=== PATIENT | male | born 1985 | race Caucasian/White ===

== ENCOUNTER 2018-12-01 14:21 | Emergency (ER) | payer SELFPAY ==
[2018-12-01 14:30] VITALS: BP 134/72
--- NOTE | 2018-12-01 15:29 | ER Document Report ---
HPI - HPI Patient complains to provider of: neck bump Time Seen by Provider: 12/01/18 15:15 Pain Level: 1 Context: Patient is otherwise healthy 33-year-old male presents to the emergency department for a lesion noted to the left side of his throat. States he has had this "bump" for the last 2 years. Patient states today he figured he would "get it checked out." Patient is denying any pain, redness, increase in swelling or size. Patient's denying any discharge from the site. Patient's denying any internal sore throat, URI symptoms, fever, rash. Patient denies any medical problems, takes no daily medications, has an allergy to penicillin. Past Medical History - General Information source: Patient - Social History Smoking Status: Unknown if Ever Smoked Family History: Reviewed & Not Pertinent Psychiatric Medical History: Denies: Hx Depression Traumatic Medical History: Reports: Hx Fractures - jaw Past Surgical History: Reports: Hx Oral Surgery, Hx Tonsillectomy - Immunizations Hx Diphtheria, Pertussis, Tetanus Vaccination: No Vertical Provider Document - CONSTITUTIONAL Agree With Documented VS: Yes Notes: GENERAL: Alert, interacts well. No acute distress. HEAD: Normocephalic, atraumatic. EYES: Pupils equal, round, and reactive to light. Extraocular movements intact. ENT: Oral mucosa moist, tongue midline. Nares patent, no nasal septal hematoma, TM's intact, nonerythematous, nonbulging bilaterally. Pharynx within normal limits no palatal petechiae noted. NECK: Full range of motion. Supple. Trachea midline. No nuchal rigidity noted LUNGS: Clear to auscultation bilaterally, no wheezes, rales, or rhonchi. No respiratory distress. HEART: Regular rate and rhythm. No murmur ABDOMEN: Soft, non-tender. Non-distended. Bowel sounds present in all 4 quadrants. EXTREMITIES: Moves all 4 extremities spontaneously. No edema, normal radial and dorsalis pedis pulses bilaterally. No cyanosis. BACK: no cervical, thoracic, lumbar midline tenderness. No saddle anesthesia, normal distal neurovascular exam. NEUROLOGICAL: Alert and oriented x3. Normal speech. [cranial nerves II through X II grossly intact]. PSYCH: Normal affect, normal mood. SKIN: Warm, dry, normal turgor. Lesion patient is speaking of is 1 cm x 1 cm movable the left neck in the area of anterior cervical lymph nodes. Overlying skin is nonerythematous, nonfluctuant, nonindurated. - INFECTION CONTROL TRAVEL OUTSIDE OF THE [place] IN LAST 30 DAYS: No Course - Re-evaluation Re-evalutation: 12/01/18 15:27 I discussed with patient that this lesion does not appear infected at this time. Lymphadenopathy is on my differential but also unlikely due to the patient having this lesion for 2 years. The lesion is movable. Patient has no other symptoms to include fever, recent weight loss, generalized malaise, URI. I discussed following up at [facility] for continued care. At this time will discharge with return precautions and follow-up recommendations. Verbal discharge instructions given a the bedside and opportunity for questions given. Medication warnings reviewed. Patient is in agreement with this plan and has verbalized understanding of return precautions and the need for primary care follow-up in the next 24-72 hours. This medical record was dictated with voice recognizing software. There may be grammatical, syntax errors that are unintended. - Vital Signs Vital signs: Temp Pulse Resp BP Pulse Ox 98 F 86 18 134/72 H 97 12/01/18 14:29 12/01/18 14:29 12/01/18 14:29 12/01/18 14:29 12/01/18 14:29 Discharge - Discharge Clinical Impression: Skin lesion Condition: Stable Disposition: HOME, SELF-CARE Additional Instructions: As we discussed you have been seen and treated in the emergency department for a lesion to the left side of your neck. At this point time I do not feel as though this lesion is. It could be something called lymphadenopathy. This is just a swelling of the lymph nodes that are typically in your neck. My recommendation will be to follow-up with [facility] for continued care and testing. Please immediately return to the emergency room for any concerns. Forms: Return to Work Referrals: [facility] [Provider Group] - Follow up as needed [facility] [Provider Group] - Follow up as needed
== END 2018-12-01 15:25 | disposition home or self-care (01) ==
LOC: ER 14:21
DX: L98.9 Disorder of the skin and subcutaneous tissue, unspecified (principal); R22.1 Localized swelling, mass and lump, neck
CPT/HCPCS: 99283